=== PATIENT | male | born 1990 | race Asian ===

== ENCOUNTER 2021-11-16 20:26 | Emergency (ER) | payer OTHER ==
[~2021-11-16] VITALS: Ht 167.6 cm; Wt 99.8 kg
--- NOTE | 2021-11-16 21:03 | NUR ---
TO LOBBY FOLLOWING TRIAGE
[2021-11-16] MEDS ORDERED: METOCLOPRAMIDE 10 MG TAB PO ONE (21:55)
[2021-11-16] MEDS ORDERED: FAMO-92 PO (22:00)
[2021-11-16] MEDS ORDERED: BEN50 PO (22:00)
[2021-11-16] MEDS ORDERED: METO-486 PO (22:00)
[2021-11-16] MEDS ORDERED: EPIN1KIT32 IM (22:00)
--- NOTE | 2021-11-16 22:46 | NUR ---
Patient discharged with v/s stable. Written and verbal after care instructions given and explained about Allergies and Anaphylactic Reaction. Patient alert, oriented and verbalized understanding of instructions. Ambulatory with steady gait. All questions addressed prior to discharge. ID band removed. Patient advised to follow up with PMD. Rx of benadryl, epipen 2-jimbo, pepcid, reglan given. Patient educated on indication of medication including possible reaction and side effects. Opportunity to ask questions provided and answered.
== END 2021-11-16 22:46 | disposition home or self-care (01) ==
LOC: MED 20:26
DX: L25.8 Unspecified contact dermatitis due to other agents (principal); T39.1X5A Adverse effect of 4-Aminophenol derivatives, initial encounter; Y92.89 Other specified places as the place of occurrence of the external cause
CPT/HCPCS: 99283; J8597

== ENCOUNTER 2024-04-17 00:54 | Emergency (ER) | payer OTHER ==
[~2024-04-17] VITALS: Ht 167.6 cm; Wt 104.3 kg
[~2024-04-17 00:54] MED LIST: BEN50 PO; EPIN1KIT32 IM; FAMO-92 PO; METO-486 PO
[2024-04-17 01:03] VITALS: BP 158/101; PULSE 86; RESP 16; TEMP 99.3; O2SAT 97
[2024-04-17 01:45] LABS: APPEARANCE,URINE CLEAR (CLEAR); BILIRUBIN,URINE NEGATIVE (NEGATIVE); BLOOD, URINE 3+ (NEGATIVE); COLOR,URINE YELLOW (YELLOW); LEUKOCYTE ESTERASE ,URINE NEGATIVE (NEGATIVE); NITRITE, URINE NEGATIVE (NEGATIVE); PROTEIN,URINE NEGATIVE (NEGATIVE); UGLUCOSE NEGATIVE (NEGATIVE); UROBILINOGEN,URINE 0.2 EU/dL (0.2 - 1)
[2024-04-17 01:49] LABS: BACTERIA,URINE 10-30 (MOD) /HPF (None Seen); MUCUS,URINE 1+ /LPF (None Seen); RBC,URINE >20 (MANY) /HPF (0-5); SQUAMOUS EPITHELIAL CELL,UR 0-3 (FEW) /LPF (0-3 (FEW)); WBC,URINE 0-5 /HPF (0-5)
[2024-04-17] MEDS ORDERED: TAMS0.4C96 PO (01:52)
[2024-04-17] MEDS ORDERED: IBUP-2213 PO (01:52)
[2024-04-17] MEDS ORDERED: ONDA8TAB87 PO (01:52)
[2024-04-17] MEDS ORDERED: ACET-8905 PO (01:52)
[2024-04-17] MEDS: NACL 0.9% 1,000 ML IV ONE (01:59)
[2024-04-17] MEDS: KETOROLAC 30 MG/ML VIAL IVP ONE (02:04)
[2024-04-17 02:52] VITALS: BP 138/88; PULSE 71; RESP 16; TEMP 98.8; O2SAT 97
== END 2024-04-17 02:52 | disposition home or self-care (01) ==
LOC: MED 00:54
DX: R10.31 Right lower quadrant pain (principal); R11.2 Nausea with vomiting, unspecified; R31.9 Hematuria, unspecified; J45.909 Unspecified asthma, uncomplicated; Z79.1 Long term (current) use of non-steroidal anti-inflammatories (NSAID); Z79.899 Other long term (current) drug therapy
CPT/HCPCS: 81001; 96361; 96374; 99283; J1885; J7030